=== PATIENT | female | born 1995 | race Caucasian/White ===

== ENCOUNTER → 2024-05-13 | Outpatient (CLI) | payer OTHER ==
[~2024-05-13] MED LIST: AMBIEN5 M1 PO; ZOFRAN ODT4 MG PO
== END ==
LOC: LAB 17:59
DX: J02.9 Acute pharyngitis, unspecified (principal)

== ENCOUNTER 2024-05-15 01:33 | Emergency (ER) | payer OTHER ==
[~2024-05-15] VITALS: Ht 167.6 cm; Wt 70.9 kg
[2024-05-15] MEDS ORDERED: Ondansetron 4 MG/2 ML VIAL IV ONE (02:15)
[2024-05-15] MEDS ORDERED: NS 1,000 ML IV SCH (02:15)
[2024-05-15 04:28] LABS: BASO # 0.02 K/mm3 (0.02-0.10); EOS # 0.03 K/mm3 (0.04-0.40); EOS % 0.2 % (1.0-5.0); HEMATOCRIT 36.9 % (37.0-47.0); HEMOGLOBIN 12.4 g/dL (12.5-16.0); LYMPH# 0.66 K/mm3 (1.50-4.00); MEAN CELL VOLUME 93 fl (78-100); MEAN CORPUSCULAR HEMOGLOBIN 31 pg (27-31); MEAN CORPUSCULAR HGB CONC 34 g/dL (33-37); MEAN PLATELET VOLUME 11.6 fl (7.4-10.4); MONO # 0.69 K/mm3 (0.20-0.80); NEU # 15.41 K/mm3 (1.40-6.50); PLATELET COUNT 205 K/mm3 (130-400); RED BLOOD COUNT 3.99 M/mm3 (4.10-5.30); RED CELL DISTRIBUTION WIDTH 12.6 % (11.5-14.5); WHITE BLOOD COUNT 16.9 K/mm3 (4.8-10.8)
[2024-05-15] MEDS ORDERED: AMBIEN5 M1 PO (06:35)
[2024-05-15 06:37] LABS: URINE APPEARANCE CLOUDY (CLEAR); URINE COLOR AMBER (YELLOW)
[2024-05-15 06:38] VITALS: BP 110/69
[2024-05-15 06:40] LABS: URINE GLUCOSE NEGATIVE (NEGATIVE); URINE KETONE 3+ (NEGATIVE); URINE PROTEIN(semi-quant) 2+ (NEGATIVE)
[2024-05-15 06:41] LABS: URINE BILIRUBIN 1+ (NEGATIVE); URINE BLOOD NEGATIVE (NEGATIVE); URINE LEUKOCYTE ESTERASE NEGATIVE (NEGATIVE); URINE MUCUS PRESENT (NOT PRESENT); URINE NITRATE NEGATIVE (NEGATIVE); URINE WBC 0-1 /hpf (0-3)
[2024-05-15 06:42] LABS: ALBUMIN 4.1 g/dL (3.5-5.0); CALCIUM 9.5 mg/dL (8.3-10.5); TOTAL BILIRUBIN 0.4 mg/dL (0.2-1.2); TOTAL PROTEIN 7.7 g/dL (6.4-8.3)
[2024-05-15] MEDS ORDERED: ZOFRAN ODT4 MG PO (07:12)
== END 2024-05-15 07:09 | disposition home or self-care (01) ==
LOC: ED 01:33
PROVIDERS: Family Medicine
DX: O99.613 Diseases of the digestive system complicating pregnancy, third trimester (principal); A08.4 Viral intestinal infection, unspecified; Z3A.31 31 weeks gestation of pregnancy